=== PATIENT | male | born 1995 | race Caucasian/White ===

== ENCOUNTER → 2018-10-21 | Outpatient (CLI) | payer OTHER ==
[~2018-10-21] MED LIST: GADOBUTROL 7.5 MMOL/7.5 ML VIAL INT ART ONE; IOHEXOL 300 MG/ML 50 ML VIAL. INT ART ONE; LIDOCAINE 1% Multi-Dose 20 ML VIAL. ID ONE
--- NOTE | 2018-10-21 14:15 | KCIC ---
EXAM: FLUOROSCOPY GUIDED RIGHT ELBOW ARTHROGRAM History: Right elbow popping, pain COMPARISON: None available TECHNIQUE: Consent: A written, informed consent was obtained from the patient prior to the procedure. Appropriate time out procedures were performed. The skin was prepped and draped in the usual fashion under aseptic precautions. Dilute 1% lidocaine was used for local anesthesia. Under fluoroscopic guidance a 25 gauge needle was used to access the elbow joint. 10 mL of a mixture of 0.1 ml of gadolinium with 5 mls of saline, and 2.5 ml of lidocaine and 2.5 ml of Omnipaque 300 were drawn into a 10ml syringe. 6 ml of this mixture was injected into the elbow joint. A normal elbow joint was outlined. The patient was transferred to the MRI suite. 27 seconds of total fluoroscopy time was utilized. Total fluoroscopic images 1 No immediate complications. IMPRESSION: Technically successful right elbow arthrogram. Electronically signed by: Keagan Garner MD (10/21/2018 2:08 PM) [id number]
--- NOTE | 2018-10-21 16:56 | KCIC ---
EXAM: MR right elbow arthrogram INDICATION: Right elbow pain, popped while throwing Javelin. TECHNIQUE: Fluoroscopic guided arthrogram was performed prior to MRI. A mixture of dilute gadolinium with local anesthetic was injected. Please see corresponding report for further details. Multiplanar, multisequence imaging of the elbow was performed. FINDINGS: Ligaments: Ulnar collateral ligament: There is a tear of the distal attachment of the distal ulnar collateral ligament with extension of contrast inferiorly Radial collateral ligament: Intact. Lateral ulnar collateral ligament: Intact. Other ligaments and capsule: Intact. Muscles: Flexor and extensor origins are intact. No signal abnormality in the muscles. Cartilage: No osteochondral defects. Bone: Mild increased T2 signal identified in the medial aspect of the ulna.. Soft tissue : Within normal limits. No abnormality of the neurovascular structures. IMPRESSION: 1. Tear of the the distal attachment of the anterior band of the ulnar collateral ligament. Electronically signed by: Keagan Garner MD (10/21/2018 4:54 PM) [id number]
== END | disposition home or self-care (01) ==
LOC: KCIC 12:43
PROVIDERS: ATTEND Orthopaedic Surgery
DX: S53.441A Ulnar collateral ligament sprain of right elbow, initial encounter (principal); X50.0XXA Overexertion from strenuous movement or load, initial encounter; Y93.89 Activity, other specified; Y92.89 Other specified places as the place of occurrence of the external cause; Y99.8 Other external cause status
CPT/HCPCS: 24220; 73085; 73222; A9585; Q9967